=== PATIENT | male | born 1985 | race Hispanic/Latino ===

== ENCOUNTER 2024-01-28 11:48 | Emergency (ER) | payer OTHER, SELFPAY ==
[2024-01-28 11:50] VITALS: BP 140/69
[2024-01-28] MEDS: ADACEL 0.5 ML IM (12:48)
[2024-01-28] MEDS: LET TOPICAL ANESTHETIC GEL 3 ML TOPICAL (12:49)
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
== END 2024-01-28 13:57 | disposition home or self-care (01) ==
LOC: EMR 11:48
PROVIDERS: EMERGENCY PHYSICIAN Emergency Medicine
DX: S01.21XA Laceration without foreign body of nose, initial encounter (principal); Y04.0XXA Assault by unarmed brawl or fight, initial encounter; Y92.149 Unspecified place in prison as the place of occurrence of the external cause; Z23 Encounter for immunization
CPT/HCPCS: 99282; 90471; 90715